=== PATIENT | female | born 1970 | race Caucasian/White ===

== ENCOUNTER 2020-08-28 15:58 | Emergency (ER) | payer MEDICAID ==
[~2020-08-28] VITALS: Ht 160 cm; Wt 64.0 kg
[2020-08-28] MEDS ORDERED: ASPIRIN 81MG TABLET PO ONE (16:30)
[2020-08-28] MEDS ORDERED: NITROGLYCERIN 0.4MG TABLET SL SL PRN (16:30)
[2020-08-28 16:59] LABS: BASOPHILS % 0.6 % (0.0-2.0); EOSINOPHILS % 3.1 % (0.0-5.0); HEMOGLOBIN. 13.6 g/dL (12.0-16.0); LYMPHOCYTES % 36.2 % (20.0-50.0); MEAN CORPUSCULAR HEMOGLOBIN 28.1 pg (28.0-32.0); MEAN CORPUSCULAR VOLUME 84.4 fL (81.0-99.0); MEAN PLATELET VOLUME 8.9 fl (7.4-10.4); MONOCYTES % 5.7 % (2.0-8.0); NEUTROPHILS % 54.4 % (40.0-76.0); PLATELET 262 x1000/uL (130-400); RED BLOOD CELL COUNT 4.86 mill/uL (4.2-5.4)
[2020-08-28 17:06] LABS: CHLORIDE 104 mEq/L (98-107)
[2020-08-28 17:12] LABS: D-DIMER 0.33 mg/L FEU (<0.50); PARTIAL THROMBOPLASTIN TIME 27.9 sec (23.4-31.0); PROTHROMBIN TIME 10.2 sec (9.6-11.0)
[2020-08-28 19:30] VITALS: BP 128/79
== END 2020-08-28 20:05 | disposition left against medical advice (07) ==
LOC: ER 15:58 → ENRESERV 23:19 → CANRESERV 23:19 → CANBEDREQ 23:22
DX: R07.89 Other chest pain (principal); F41.9 Anxiety disorder, unspecified; M79.642 Pain in left hand; M79.641 Pain in right hand; E11.9 Type 2 diabetes mellitus without complications; Z98.890 Other specified postprocedural states
CPT/HCPCS: 36415; 71045; 80053; 82962; 83880; 84484; 85025; 85379; 85610; 85730; 99284; Z7610

== ENCOUNTER 2024-06-11 13:50 | Emergency (ER) | payer MEDICAID, OTHER ==
[~2024-06-11] VITALS: Ht 162.6 cm; Wt 66.0 kg
[~2024-06-11 13:50] MED LIST: FAMO-135 MT; LACT1CAP77 PO; METF-416 MT; SUCR1TAB30 MT
[2024-06-11 14:01] VITALS: O2SAT 98
[2024-06-11 16:12] VITALS: BP 137/68; PULSE 90; RESP 18; TEMP 36.72516; O2SAT 98
== END 2024-06-11 16:13 | disposition home or self-care (01) ==
LOC: ER 13:50
DX: M79.641 Pain in right hand (principal); R07.89 Other chest pain; E11.9 Type 2 diabetes mellitus without complications; Z98.890 Other specified postprocedural states; V49.40XA Driver injured in collision with unspecified motor vehicles in traffic accident, initial encounter; Y93.89 Activity, other specified; Y92.89 Other specified places as the place of occurrence of the external cause; Y99.8 Other external cause status
CPT/HCPCS: 71045; 73130; 93005; 99284